=== PATIENT | male | born 2000 | race Two or more races ===

== ENCOUNTER → 2023-10-09 06:31 | Day surgery (SDC) | payer BC, SELFPAY ==
[2023-10-09] VITALS (10 sets, daily range): BP systolic 110–126; BP diastolic 48–67; BMI 23.7
[2023-10-09] MEDS: NORMOSOL-R 1000 IV (13:30)
[2023-10-09] MEDS: ROXICODONE 5 MG PO (20:53)
== END ==
LOC: SDS 06:31
PROVIDERS: ATTENDING PHYSICIAN Orthopaedic Surgery Hand Surgery
DX: S52.501A Unspecified fracture of the lower end of right radius, initial encounter for closed fracture (principal); S52.611A Displaced fracture of right ulna styloid process, initial encounter for closed fracture; V19.3XXA Pedal cyclist (driver) (passenger) injured in unspecified nontraffic accident, initial encounter; Y93.55 Activity, bike riding
CPT/HCPCS: 25609; C1713